=== PATIENT | male | born 1955 | race Caucasian/White ===

== ENCOUNTER 2017-06-30 23:00 | Emergency (ER) | payer OTHER ==
[~2017-06-30] VITALS: Ht 180.3 cm; Wt 113.4 kg
[2017-06-30] MEDS ORDERED: SYNTHROID150 MCG PO (23:11)
[2017-07-01] MEDS ORDERED: KEFLEX500 M1 PO (01:33)
[2017-07-01] MEDS ORDERED: NORCO 7.5-3251 EACH PO (01:33)
[2017-07-01 02:18] VITALS: BP 148/84
== END 2017-07-01 02:20 | disposition home or self-care (01) ==
LOC: M.ERS 23:00
DX: S62.522B Displaced fracture of distal phalanx of left thumb, initial encounter for open fracture (principal); W22.8XXA Striking against or struck by other objects, initial encounter; Y93.89 Activity, other specified; Y92.89 Other specified places as the place of occurrence of the external cause; Y99.0 Civilian activity done for income or pay

== ENCOUNTER 2019-08-15 11:44 | Emergency (ER) | payer BC ==
[~2019-08-15] VITALS: Ht 180.3 cm; Wt 113.4 kg
[~2019-08-15 11:44] MED LIST: KEFLEX500 M1 PO; NORCO 7.5-3251 EACH PO; SYNTHROID150 MCG PO
[2019-08-15] MEDS ORDERED: COZAAR 25 MG TA25 M1 PO (11:57)
[2019-08-15] MEDS ORDERED: NORVASC5 MG PO (11:57)
[2019-08-15] MEDS ORDERED: SYNTHROID100 MC1 PO (11:58)
[2019-08-15 12:39] LABS: HEMATOCRIT 37.5 % (42.0-52.0); HEMOGLOBIN 12.4 gm/dL (14.0-18.0); MCH 29.1 pg (26.0-34.0); MCHC 33.1 g/dL (28.0-37.0); MCV 87.9 fL (80.0-100.0); MPV 8.1 fl. (7.2-11.1); NUCLEATED RBCS 0 /100WBC; PLATELET COUNT* 294 thou/uL (150-400); RBC 4.26 mil/uL (4.50-6.00); RDW-CV 14.1 % (10.5-14.5); WBC 21.8 thou/uL (4.0-11.0)
[2019-08-15 12:58] LABS: CALCIUM 8.8 mg/dL (8.5-10.1); CREATININE 1.3 mg/dL (0.6-1.3); INR 1.1; PROTIME 10.9 Seconds (9.20-11.50)
[2019-08-15 13:03] LABS: ALBUMIN 3.8 g/dL (3.4-5.0); TOTAL BILIRUBIN 1.7 mg/dL (<0.1-1.0); TOTAL PROTEIN 7.6 g/dL (6.4-8.2)
[2019-08-15] MEDS ORDERED: KEFLEX500 M1 PO (13:34)
[2019-08-15] MEDS ORDERED: BACTRIM DS TAB1 EACH PO (13:34)
[2019-08-15 13:36] LABS: ABSOLUTE LYMPHOCYTES 1.7 thou/uL (0.8-5.3); ABSOLUTE MONOCYTES 0.2 thou/uL (0.0-1.2); ABSOLUTE NEUTROPHILS 19.8 thou/uL (1.6-8.1)
[2019-08-15 13:37] LABS: PLATELET ESTIMATE ADEQUATE
[2019-08-15] MEDS ORDERED: IBUPROFEN 800800 MG PO (13:38)
[2019-08-15] MEDS ORDERED: HYDROCODON-ACE1 EAC7 PO (13:38)
[2019-08-15 13:50] VITALS: BP 112/52
== END 2019-08-15 13:50 | disposition home or self-care (01) ==
LOC: M.ERS 11:44
PROVIDERS: Personal Emergency Response Attendant
DX: L03.115 Cellulitis of right lower limb (principal); Z85.46 Personal history of malignant neoplasm of prostate

== ENCOUNTER 2019-08-19 19:22 | Emergency (ER) | payer BC ==
[~2019-08-19] VITALS: Ht 180.3 cm; Wt 113.4 kg
[~2019-08-19 19:22] MED LIST changes: +BACTRIM DS TAB1 EACH PO; +COZAAR 25 MG TA25 M1 PO; +HYDROCODON-ACE1 EAC7 PO; +IBUPROFEN 800800 MG PO; +NORVASC5 MG PO; +SYNTHROID100 MC1 PO
[2019-08-19 19:57] LABS: ABSOLUTE BASOPHILS 0.1 thou/uL (0.0-0.2); ABSOLUTE EOSINOPHILS 0.3 thou/uL (0.0-0.7); ABSOLUTE LYMPHOCYTES 2.1 thou/uL (0.8-5.3); ABSOLUTE NEUTROPHILS 8.4 thou/uL (1.6-8.1); BASOPHILS 0.9 %; EOSINOPHILS 2.5 %; HEMATOCRIT 37.9 % (42.0-52.0); HEMOGLOBIN 12.8 gm/dL (14.0-18.0); LYMPHOCYTES 17.4 %; MCH 29.2 pg (26.0-34.0); MCHC 33.7 g/dL (28.0-37.0); MCV 86.6 fL (80.0-100.0); MONOCYTES 8.5 %; NUCLEATED RBCS 0 /100WBC; PLATELET COUNT* 367 thou/uL (150-400); POLYS 70.7 %; RBC 4.38 mil/uL (4.50-6.00); RDW-CV 14.6 % (10.5-14.5)
[2019-08-19 20:04] LABS: CALCIUM 8.8 mg/dL (8.5-10.1); POTASSIUM 3.8 mmol/L (3.5-5.1)
[2019-08-19 20:09] LABS: ALBUMIN 3.1 g/dL (3.4-5.0); TOTAL BILIRUBIN 0.4 mg/dL (<0.1-1.0); TOTAL PROTEIN 7.7 g/dL (6.4-8.2)
[2019-08-19] MEDS ORDERED: CLEOCIN HCL300 MG PO (22:05)
[2019-08-19 22:34] VITALS: BP 136/61
--- NOTE | 2019-08-20 09:21 | EKG ---
[place] [address] ELECTROCARDIOGRAM REPORT Name: JAMISON BERGER Room: [facility]#: [id number] Admission: 08/19/19 Attend Phys: Discharge: 08/19/19 Date of : 57 Date of Service: 08/19/192009 Report #: [id number] THIS REPORT FOR: //name// [facility] ED Test Date: 2019-08-19 Test Time: 20:10:56 Pat Name: JAMISON BERGER Department: Room: Gender: Physical Sciences Instructor: : 1955 Requested By: Srinivasa Hussein Order Number: [id number] MD: Arnav Cho Measurements Intervals [place] Rate: 74 P: 35 DE: 146 QRS: -4 QRSD: 100 T: 14 QT: 383 QTc: 425 Interpretive Statements Sinus rhythm Probable left atrial enlargement Left ventricular hypertrophy No previous ECG available for comparison Electronically Signed On 08-20-2019 9:20:09 CDT by Arnav Cho [email or web address] <ELECTRONICALLY SIGNED> By: Arnav Cho MD, [facility] 08/20/19919 09 09 Arnav Cho MD, FACC /EPI
== END 2019-08-19 22:35 | disposition home or self-care (01) ==
LOC: M.ERS 19:22
PROVIDERS: Nurse Practitioner Psychiatric/Mental Health
DX: L03.115 Cellulitis of right lower limb (principal); R79.89 Other specified abnormal findings of blood chemistry; I10 Essential (primary) hypertension; Z85.46 Personal history of malignant neoplasm of prostate

== ENCOUNTER 2020-04-08 14:20 | Emergency (ER) | payer BC ==
[~2020-04-08] VITALS: Ht 180.3 cm; Wt 117.9 kg
[~2020-04-08 14:20] MED LIST changes: +CLEOCIN HCL300 MG PO
[2020-04-08 15:13] LABS: ABSOLUTE BASOPHILS 0.1 thou/uL (0.0-0.2); ABSOLUTE EOSINOPHILS 0.3 thou/uL (0.0-0.7); ABSOLUTE LYMPHOCYTES 2.2 thou/uL (0.8-5.3); ABSOLUTE MONOCYTES 0.8 thou/uL (0.0-1.2); ABSOLUTE NEUTROPHILS 4.1 thou/uL (1.6-8.1); BASOPHILS 1.4 %; EOSINOPHILS 3.6 %; HEMATOCRIT 42.5 % (42.0-52.0); HEMOGLOBIN 14.1 gm/dL (14.0-18.0); LYMPHOCYTES 30.2 %; MCH 29.3 pg (26.0-34.0); MCHC 33.1 g/dL (28.0-37.0); MCV 88.5 fL (80.0-100.0); MONOCYTES 10.3 %; MPV 7.8 fl. (7.2-11.1); NUCLEATED RBCS 0 /100WBC; PLATELET COUNT* 313 thou/uL (150-400); POLYS 54.5 %; RBC 4.81 mil/uL (4.50-6.00); RDW-CV 14.7 % (10.5-14.5); WBC 7.4 thou/uL (4.0-11.0)
[2020-04-08 15:45] LABS: CALCIUM 8.4 mg/dL (8.5-10.1); CREATININE 1.2 mg/dL (0.6-1.3); POTASSIUM 4.3 mmol/L (3.5-5.1)
[2020-04-08 15:50] LABS: TOTAL BILIRUBIN 0.8 mg/dL (<0.1-1.0); TOTAL PROTEIN 7.6 g/dL (6.4-8.2)
[2020-04-08] MEDS ORDERED: PEPCID20 MG PO (18:37)
[2020-04-08] MEDS ORDERED: MEDROLDOSEPACK PO (18:37)
[2020-04-08] MEDS ORDERED: KEFLEX500 M1 PO (18:37)
[2020-04-08 18:45] VITALS: BP 140/72
== END 2020-04-08 18:46 | disposition home or self-care (01) ==
LOC: M.ERS 14:20
PROVIDERS: Physician Assistant
DX: M54.2 Cervicalgia (principal); Z85.46 Personal history of malignant neoplasm of prostate; Z79.899 Other long term (current) drug therapy